=== PATIENT | female | born 1990 | race Native Hawaiian/Other Pacific Islander ===

== ENCOUNTER 2021-05-16 20:59 | Emergency (ER) | payer BC ==
[~2021-05-16] VITALS: Ht 154.9 cm; Wt 71.7 kg
[2021-05-16 20:59] VITALS: BP 110/66; TEMP 97.6
== END 2021-05-16 22:00 | disposition home or self-care (01) ==
LOC: ED 20:59
DX: J02.8 Acute pharyngitis due to other specified organisms (principal)
CPT/HCPCS: 36415; 87651; 99282

== ENCOUNTER 2021-10-28 19:33 | Emergency (ER) | payer BC ==
[~2021-10-28] VITALS: Ht 154.9 cm; Wt 69.4 kg
[2021-10-28 22:15] VITALS: BP 120/65; TEMP 97.6
== END 2021-10-28 22:15 | disposition home or self-care (01) ==
LOC: ED 19:33
PROC: 0HQGXZZ Repair Left Hand Skin, External Approach (ICD-10-PCS; principal; 2021-10-28)
DX: S61.012A Laceration without foreign body of left thumb without damage to nail, initial encounter (principal); W26.0XXA Contact with knife, initial encounter; Y93.G1 Activity, food preparation and clean up; Y92.89 Other specified places as the place of occurrence of the external cause
CPT/HCPCS: 90471; 90715; 99283; J2001

== ENCOUNTER 2021-11-07 12:54 | Emergency (ER) | payer BC ==
[~2021-11-07] VITALS: Ht 154.9 cm; Wt 69.4 kg
[2021-11-07 13:03] VITALS: TEMP 98.8
[2021-11-07 13:25] VITALS: BP 125/70
== END 2021-11-07 13:25 | disposition home or self-care (01) ==
LOC: ED 12:54
DX: S61.012D Laceration without foreign body of left thumb without damage to nail, subsequent encounter (principal); Z48.02 Encounter for removal of sutures; W45.8XXD Other foreign body or object entering through skin, subsequent encounter; Y92.89 Other specified places as the place of occurrence of the external cause